=== PATIENT | female | born 1970 | race African-American/Black ===

== ENCOUNTER → 2020-01-06 08:52 | Outpatient (CLI) | payer BC, SELFPAY ==
--- NOTE | ~2020-01-06 | CT_ITS ---
EXAMINATION: CT abdomen pelvis wo/w con EXAM DATE: 01/06/2020 09:37 INDICATION: Microscopic hematuria. Recent bladder infection. Partial hysterectomy. Hypertension. TECHNIQUE: Spiral CT of the abdomen and pelvis was performed without contrast. The patient was then injected with small bolus intravenous Omnipaque 350, followed by delay of approximately 10 minutes to allow collecting system to opacify. A post contrast scan abdomen and pelvis was performed during inj ection of remaining contrast. A total of 130 cc intravenous contrast was administered. The dose-sisi th product (DLP) for this examination was 959.91 mGy-cm. The exposure was tailored according to rick ent size (auto mA exposure control), and iterative reconstruction (ASIR) was used as additional dose reduction technique. There is no prior study for comparison. FINDINGS: There are 3 left mid calyceal stones, up to 5 mm in size. There are 4 right calyceal stones up to 3 mm in size. There is a right renal cyst measuring 1 cm. The kidneys enhance symmetrically. There are no suspicious renal lesions. Filling defect in the left inferior most calyx could be a pr ominent papillary. The opacified portions of ureters are unremarkable, without filling defects or foc al suspicious strictures. The bladder is unremarkable. The uterus is not identified and has likely been surgically resected. The liver, spleen, adrenal glands and pancreas are unremarkable. Gallbladder is unremarkable. No bi liary obstruction. There is no retroperitoneal or pelvic lymphadenopathy. The appendix is not positively visualized. There is no pericecal inflammatory change to suggest appe ndicitis. The stomach and small bowel are unremarkable. There is expected amount of colonic stool. No free intraperitoneal gas. The heart is normal in size. There are no pericardial or pleural e ffusions. The lung bases are unremarkable. There are no osteoblastic or osteolytic lesions identifi ed. IMPRESSION: 1. Bilateral nephrolithiasis. 2. Left inferior calyceal filling defect most likely more prominent papilla. Reviewed, dictated and finalized at location B. ER SKIDDER
[2020-01-06 09:14] LABS: Blood Urea Nitrogen 20 mg/dL (8-26); Estimated Glomerular Filt Rate > 60
== END ==
PROVIDERS: PCP Internal Medicine; Visit Provider Internal Medicine Interventional Cardiology
DX: R31.21 Asymptomatic microscopic hematuria (principal); N20.0 Calculus of kidney
CPT/HCPCS: 74178; Q9967

== ENCOUNTER → 2020-10-31 12:47 | Outpatient (CLI) | payer BC, SELFPAY ==
--- NOTE | ~2020-10-31 | CT_ITS ---
EXAMINATION: CT abdomen pelvis wo/w con DATE: 10/31/2020 13:49 INDICATION: Hematuria TECHNIQUE: Computed tomography (CT) of the abdomen and pelvis was performed without and subsequently with 130 cc Omnipaque 350 intravenous contrast. Automated exposure control and iterative reconstructi on technique were employed. Exam dose: 1065.69 mGy-cm total exam DLP. COMPARISON: 01/06/2020 CT abdomen pelvis without and with IV contrast material FINDINGS: The lung bases are clear. Normal heart size. No pericardial or pleural effusion. The liver, gallbladder, bile ducts, spleen, pancreas, pancreatic duct and adrenal glands appear abhishek l. There are 4 small nonobstructing right renal calculi, the largest measuring approximately 4 mm james l dimension. There are 3 left renal calculi, the largest approximately 6 mm, one measuring approximately 4.5 mm, a nd a very subtle punctate lower pole left renal calculus. No ureteral calculus or hydroureteronephrosis. There is a 1 cm hypoenhancing exophytic lesion at the lower pole left kidney, likely a cyst. 10.5 mm lower pole right renal cyst. A couple of additional small right renal cysts are suggested. The urinary bladder is unremarkable. Normal caliber of the abdominal aorta. No intraperitoneal or retroperitoneal or pelvic mass lesion or adenopathy or ascites is detected. Normal appendix. There is diverticulosis of the sigmoid colon; no evidence of diverticulitis. No bowel obstruction or intraperitoneal free air. Included skeletal structures are unremarkable; no suspicious osteolytic or osteoblastic lesions are n oted. IMPRESSION: Bilateral nonobstructive nephrolithiasis Bilateral probable renal cysts Diverticulosis of the sigmoid colon Reviewed, dictated and finalized at Location A. Reviewed, dictated and finalized at location A. STAFFING
[2020-10-31 13:24] LABS: Estimated Glomerular Filt Rate > 60
== END ==
PROVIDERS: PCP Internal Medicine; Visit Provider Urology
DX: R31.9 Hematuria, unspecified (principal); K57.30 Diverticulosis of large intestine without perforation or abscess without bleeding; N20.0 Calculus of kidney
CPT/HCPCS: 74178; Q9967

== ENCOUNTER → 2020-10-31 12:49 | Outpatient (CLI) | payer BC, SELFPAY ==
--- NOTE | ~2020-10-31 | XR_ITS ---
XR ankle RT min 3V DATE: 10/31/2020 13:22 INDICATION: Right ankle pain. No known injury. TECHNIQUE: 3 views COMPARISON: None FINDINGS: There is posterior calcaneal enthesopathy. No fracture or dislocation of the ankle or disruption of the ankle mortise. No periosteal reaction or bone destruction. IMPRESSION: Posterior calcaneal enthesopathy Reviewed, dictated and finalized at location A. PHONE WORKER
--- NOTE | ~2020-10-31 | XR_ITS ---
EXAMINATION: XR lumbar spine min 4V DATE: 10/31/2020 13:23 INDICATION: Lumbar radiculopathy TECHNIQUE: Anteroposterior and lateral in neutral, flexion and extension views of the lumbar spine, a nd cone-down lateral view of the lumbosacral junction were obtained. COMPARISON: 05/09/2019 FINDINGS: The vertebral body heights, alignment, and intervertebral disc spaces are normal. No laxity is present with flexion or extension. Small degenerative osteophytes project from the anterior endpl ates of multiple vertebral bodies. Punctate calcification of the mid abdomen are consistent with neph rolithiasis. IMPRESSION: 1. Mild lumbar spondylosis without acute findings. 2. Bilateral nephrolithiasis. Reviewed, dictated and finalized at location A. YOLOGY TEACHER
== END ==
PROVIDERS: PCP Internal Medicine; Visit Provider Internal Medicine
DX: M47.26 Other spondylosis with radiculopathy, lumbar region (principal); N20.0 Calculus of kidney; M77.31 Calcaneal spur, right foot
CPT/HCPCS: 72110; 73610

== ENCOUNTER → 2020-11-11 13:49 | Outpatient (CLI) | payer BC, SELFPAY ==
--- NOTE | ~2020-11-11 | MM_ITS ---
EXAMINATION: MM screening [facility] BI w nanci HISTORY: Screening mammogram TECHNIQUE: Craniocaudal and mediolateral oblique 3-D tomosynthesis images were obtained and synthetic 2-D images were generated. CAD analysis was submitted and interpreted. COMPARISON: 09/29/2019, 02/01/2015 BREAST PARENCHYMAL COMPOSITION: The breasts are heterogeneously dense, which may obscure small masses . FINDINGS: There is no evidence of suspicious mass, calcification, or architectural distortion to sugg est malignancy in either breast. There has been no suspicious interval change. IMPRESSION: 1. No mammographic evidence of malignancy. 2. Recommend routine screening mammography in one year. BI-RADS Category 1: Negative Reviewed, dictated and finalized at location A. OR SKIN BUFFER
== END ==
PROVIDERS: PCP Internal Medicine; Visit Provider Internal Medicine
DX: Z12.31 Encounter for screening mammogram for malignant neoplasm of breast (principal)
CPT/HCPCS: 77063; 77067

== ENCOUNTER 2021-07-09 04:11 | Day surgery (SDC) | payer BC, SELFPAY ==
[2021-07-09] VITALS (17 sets, daily range): BP systolic 111–161; BP diastolic 82–103; PULSE 70–87; RESP 13–20; TEMP 36.3–36.6; O2SAT 98–100
--- NOTE | ~2021-07-09 | CT_ITS ---
EXAMINATION: CT abdomen pelvis wo con DATE: 07/09/2021 05:03 INDICATION: Left flank pain TECHNIQUE: Computed tomography (CT) of the abdomen and pelvis was performed without intravenous contr ast. The dose-length product (DLP) was 174.10 mGy-cm. Automated exposure control and iterative recons truction technique were employed. COMPARISON: 10/31/2020 FINDINGS: Minimal dependent atelectasis is present in the lung bases. The heart size is normal. The l iver, spleen, pancreas, gallbladder, and adrenal glands are normal. There is a 9 mm stone at the left ureterovesicular junction which causes moderate left hydroureteronephrosis. There is a 4 mm nonobstr ucting stone of the left kidney. There are three nonobstructing stones of the right kidney which ish ure up to 4 mm. There is a 10 mm cyst of the right kidney. No pathologically enlarged abdominal or pe lvic lymph nodes are identified. There is no free intraperitoneal gas or evidence of bowel obstructio n. A fat-containing umbilical hernia is noted. There is mild lumbar spondylosis. IMPRESSION: 1. 9 mm stone at the left ureterovesicular junction causing moderate left hydroureteronephrosis. 2. Bilateral nonobstructing nephrolithiasis. Reviewed, dictated and finalized at location A. IMPRESSION: 1. 9 mm stone at the left ureterovesicular junction causing moderate left hydro ureteronephrosis. 2. Bilateral nonobstructing nephrolithiasis.
--- NOTE | ~2021-07-09 | XR_ITS ---
EXAMINATION: XR retrograde pyelogram LT DATE: 07/09/2021 12:50 INDICATION: Left sided flank pain for ureteral stent placement TECHNIQUE: A fluoroscopic images of the abdomen and pelvis were obtained during procedure performed deepti Patten. Radiologist was not present for the imaging or procedure. The amount of fluoroscopy t fan used during this procedure was 0.5 minutes. COMPARISON: CT dated 07/09/2021 FINDINGS: Density projecting over the left pubic body on the inspector assembly image likely representing the previously see n obstructing stone at the left ureterovesicular junction. Subsequent images demonstrate retrograde c ontrast injection into the left ureter demonstrating mild left hydronephrosis. Subsequent images demo nstrate placement of a left internal ureteral stent with loops formed in the left renal pelvis and in the bladder. The stone at the left ureterovesicular junction is no longer seen on the final images p ost stent placement and has likely been extracted. See procedure note for further detail. IMPRESSION: 1. Has been utilized during likely extraction of a stone at the left ureterovesicular junction and pl acement of a left internal ureteral stent in expected position. Reviewed, dictated and finalized at location A. IMPRESSION: 1. Has been utilized during likely extraction of a stone at the left ureteroves icular junction and placement of a left internal ureteral stent in expected pos ition.
--- NOTE | 2021-07-09 04:41 | ED.GENADULT ---
HPI - General Adult General Chief complaint: Abdominal Pain <Faustino Olivo MD - Last Filed: 07/09/21 07:16> Stated complaint: Left flank pain, n/v <Faustino Olivo MD - Last Filed: 07/09/21 07:16> Time Seen by Provider: 07/09/21 04:26 <Faustino Olivo MD - Last Filed: 07/09/21 07:16> History of Present Illness HPI narrative: Patient is a 51-year-old female presents the emergency department with chief complaint of left flank pain. Patient reports that this evening around 9 PM she started having pain in the left flank that radiates to left lower quadrant patient reports she has an uneasy feeling and feels very nauseated and has vomited multiple times. Patient has prior history of blood in her urine and was told that she had several stones that had not descended. Patient reports that she had no fever no chills reports no diarrhea with this. Patient reports the pain is not improved by anything nor is it worsened by anything patient states that movement does not modify the pain and reports that she cannot sit still. <Faustino Olivo MD - Last Filed: 07/09/21 07:16> Related Data Allergies/adverse reactions: Allergies Allergy/AdvReac Type Severity Reaction Status Date / Time No Known Allergies Allergy Unverified 11/28/17 14:31 <Faustino Olivo MD - Last Filed: 07/09/21 07:16> Review of Systems Review of Systems: A 10 system review of systems was completed on the patient and is negative except for what is stated in the HPI. Nursing and ancillary documentation was reviewed. <Faustino Olivo MD - Last Filed: 07/09/21 07:16> Exam Narrative: GENERAL: Well-appearing, well-nourished, appears in mild pain distress. HEAD: Normocephalic, atraumatic. EYES: PERRLA and EOMI. ENT: Nares clear, no rhinorrhea or epistaxis. Mucous membranes moist. NECK: Supple. CHEST: Clear to auscultation. No respiratory distress. HEART: Regular rate and rhythm. No murmur heard. Normal peripheral pulses. ABDOMEN: Soft, nontender, nondistended, normal active bowel sounds. EXTREMITIES: Normal range of motion. No edema. SKIN: Warm, dry, no rash. NEURO: No focal deficits. Alert and oriented x3. PSYCH: Normal mood and affect. <Faustino Olivo MD - Last Filed: 07/09/21 07:16> Course Consultations Consultation #1: Dr. Patten Patient will be taken to the OR at 11 AM today <Mariangel Wong MD - Last Filed: 07/09/21 09:19> Date: 07/09/21 <Mariangel Wong MD - Last Filed: 07/09/21 09:19> Time: 09:18 <Mariangel Wong MD - Last Filed: 07/09/21 09:19> Vital Signs Vital signs: Vital Signs Temperature 36.6 C 07/09/21 04:21 Pulse Rate 81 07/09/21 04:21 Respiratory Rate 20 07/09/21 04:21 Blood Pressure 146/101 H 07/09/21 04:21 Pulse Oximetry 100 07/09/21 04:21 Temperature 36.6 C 07/09/21 04:21 Pulse Rate 87 07/09/21 08:21 Respiratory Rate 20 07/09/21 08:21 Blood Pressure 161/102 H 07/09/21 06:57 Pulse Oximetry 100 07/09/21 08:21 <Faustino Olivo MD - Last Filed: 07/09/21 07:16> Vital Signs Temperature 36.6 C 07/09/21 04:21 Pulse Rate 81 07/09/21 04:21 Respiratory Rate 20 07/09/21 04:21 Blood Pressure 146/101 H 07/09/21 04:21 Pulse Oximetry 100 07/09/21 04:21 Temperature 36.6 C 07/09/21 04:21 Pulse Rate 87 07/09/21 08:21 Respiratory Rate 20 07/09/21 08:21 Blood Pressure 161/102 H 07/09/21 06:57 Pulse Oximetry 100 07/09/21 08:21 <Mariangel Wong MD - Last Filed: 07/09/21 09:19> Medical Decision Making Vital Signs Vital Signs: Vital Signs Temperature 36.6 C 07/09/21 04:21 Pulse Rate 81 07/09/21 04:21 Respiratory Rate 20 08/15/21 04:21 Blood Pressure 146/101 H 07/09/21 04:21 Pulse Oximetry 100 07/09/21 04:21 Temperature 36.6 C 07/09/21 04:21 Pulse Rate 87 07/09/21 08:21 Respiratory Rate 20 07/09/21 08:21 Blo
[2021-07-09] MEDS: SODIUM CHLORIDE 0.9% IV 1,000 ML 999 ML IV CONT (04:48)
[2021-07-09] MEDS: ONDANSETRON INJ 4 MG/2 ML VIAL IV PUSH (04:48)
[2021-07-09] MEDS: MORPHINE SULFATE (*CRX) 4 MG/ML INJ IV PUSH (04:48)
--- NOTE | 2021-07-09 04:55 | PC.NURSE ---
pt to CT at this time.
[2021-07-09 04:58] LABS: Basophils Percent Auto 0.4 % (0.2-1.2); Eosinophils Percent Auto 0.1 % (0-4.4); Hemoglobin 12.3 g/dL (12.0-15.0); Immature Granulocyte Absolute 0.03 K/mm3 (0.00-0.031); Immature Granulocyte Percent A 0.3 % (0-0.5); Lymphocytes Absolute Auto 0.65 K/mm3 (0.9-3.2); Lymphocytes Percent Auto 6.6 % (18.3-44.2); Mean Corpuscular HGB Conc 33.2 g/dl (32-36); Mean Corpuscular Hemoglobin 28.4 pg (26-34); Mean Corpuscular Volume 85.5 fl (80-100); Mean Platelet Volume 10.1 fl (7.4-10.4); Monocytes Absolute Auto 0.4 K/mm3 (0.1-0.6); Monocytes Percent Auto 4.1 % (2.6-8.5); Neutrophils Absolute Auto 8.7 K/mm3 (1.3-6.7); Neutrophils Percent Auto 88.5 % (45.5-73.1); Platelet Count Result 280 k/mm3 (150-375); Red Blood Count 4.33 M/mm3 (4.2-5.4); Red Cell Distribution Width 12.5 % (11.5-14.5); White Blood Count 9.9 K/mm3 (4.5-10.0)
[2021-07-09 05:10] LABS: Alanine Aminotransferase 15 U/L (4-35); Albumin Level 4.6 g/dL (3.5-5.1); Alkaline Phosphatase 82 U/L (38-126); Aspartate Amino Transferase 33 U/L (14-36); Bilirubin,Total 0.6 mg/dL (0.2-1.3); Lipase 110 U/L (23-300)
--- NOTE | 2021-07-09 05:13 | PC.NURSE ---
pt ambulated to bathroom at this time to give urine sample.
[2021-07-09 05:40] LABS: Add Urine Microscopic? YES; Amorphous Sediment Urine Few; Appearance Urine Cloudy (Clear); Bilirubin Urine Negative (Negative); Blood Urine 2+ (Negative); Color Urine Yellow (Yellow); Glucose Urine UA 1+ mg/dL (Negative); Ketones Urine Trace mg/dL (Negative); Leukocyte Esterase Ur Negative LEU/UL (Negative); Mucus Urine Rare /lpf; Nitrate Urine Negative (Negative); Protein Urine Negative (Negative); RBC Urine >75 /hpf (0-2); Specific Grav Ur 1.015 (1.001-1.035); Squamous Epithelial Cell Urine Rare /hpf (Few); Urobilinogen Urine Negative mg/dL (<2.0); WBC Urine 0-3 /hpf
[2021-07-09 06:37] LABS: Anion Gap 7 mmol/L (8-16); Blood Urea Nitrogen 20 mg/dL (7-17); Calcium 9.6 mg/dL (8.4-10.2); Carbon Dioxide 22 mmol/L (22-30); Chloride 104 mmol/L (98-107); Estimated Glomerular Filt Rate 48; Glucose 178 mg/dL (65-110); Potassium 3.5 mmol/L (3.4-5.0); Sodium 133 mmol/L (137-145)
--- NOTE | 2021-07-09 11:37 | WPDHPUPDATE1 ---
History and Physical Update Update Date/Time: 07/09/21 11:37 History and Physical has been reviewed, including an updated exam of the patient. There are NO changes in the patient's condition. Risks, benefits, and alternatives have been discussed and questions answered. Patient agrees to proceed with procedure. Proceed with cysto left retrograde pyelogram left stent placement possible left ureteroscopy with stone extraction and laser
--- NOTE | 2021-07-09 11:38 | PM.IMHP ---
H&P: HPI History of Present Illness Date/Time: 07/09/21 11:38 Chief Complaint: 7-8 mm left distal UVJ stone with hydronephrosis Narrative: 51-year-old female who presented to the emergency room with left flank pain. Denied any fevers. Evaluation emergency room revealed a 7 day mm obstructing distal left UVJ stone with hydronephrosis. Emergency room was having a tough time controlling her pain. She now presents for cysto left retrograde pyelogram left stent possible ureteroscopy with stone extraction and laser Review of Systems Review of Systems: All systems reviewed & are unremarkable except as noted in HPI and below Meds Home Medications and Allergies Allergies Allergy/AdvReac Type Severity Reaction Status Date / Time No Known Allergies Allergy Unverified 11/28/17 14:31 Vital Signs Vital Signs - 24 hr 07/09/21 04:21 07/09/21 05:14 07/09/21 05:50 Temperature 36.6 C Pulse Rate 81 77 78 Respiratory Rate 20 18 18 Blood Pressure 146/101 H 153/100 H 146/99 H Pulse Oximetry 100 99 98 07/09/21 06:06 07/09/21 06:57 07/09/21 08:21 Temperature Pulse Rate 70 74 87 Respiratory Rate 18 18 20 Blood Pressure 138/95 H 161/102 H Pulse Oximetry 100 100 100 07/09/21 08:52 07/09/21 09:01 07/09/21 09:15 Temperature Pulse Rate 83 81 83 Respiratory Rate 20 20 20 Blood Pressure 149/103 H 158/98 H 158/98 H Pulse Oximetry 100 100 100 07/09/21 10:13 07/09/21 10:52 Temperature Pulse Rate 78 75 Respiratory Rate 20 20 Blood Pressure 160/102 H 160/102 H Pulse Oximetry 100 100 Exam Const: General: No comfortable Eyes: General: appearance normal, both eyes and all related structures Neck: Neck: normal visual inspection Chest: Chest palpation & inspection: normal inspection of the chest Resp: Effort & Inspection: normal respiratory effort Cardio: Rate: regular rate Rhythm: regular rhythm GI: Inspection: normal to inspection H&P: Results Labs Labs: Short CBC 07/09/21 Range/Units 04:43 WBC 9.9 (4.5-10.0) K/mm3 Hgb 12.3 (12.0-15.0) g/dL Hct 37.0 (37.0-47.0) % Plt Count 280 (150-375) k/mm3 BMP 07/09/21 04:43 Sodium 133 L Potassium 3.5 Chloride 104 Carbon Dioxide 22 BUN 20 H Creatinine 1.40 H Glucose 178 H Calcium 9.6 Liver Function 07/09/21 Range/Units 04:43 Total Bilirubin 0.6 (0.2-1.3) mg/dL Direct Bilirubin 0.0 (0-0.3) mg/dL AST 33 (14-36) U/L ALT 15 (4-35) U/L Alkaline Phosphatase 82 (38-126) U/L Albumin 4.6 (3.5-5.1) g/dL Urine 07/09/21 Range/Units 05:19 Urine Color Yellow (Yellow) Urine Appearance Cloudy H (Clear) Urine pH 8.0 (5.0-9.0) Ur Specific Jessie 1.015 (1.001-1.035) Urine Protein Negative (Negative) mg/dL Urine Glucose (UA) 1+ H (Negative) mg/dL Assessment and Plan Assessment and plan (1) Ureterolithiasis: Code(s): N20.1 - Calculus of ureter Status: Acute Assessment and Plan: plan for cystoscopy, left retrograde pyelogram, left stent placement, possible ureteroscopy with stone extraction and laser
--- NOTE | 2021-07-09 11:43 | WPDANESEPPF ---
Anes - Initial Pre Proc Eval Procedure: Operation Date: 07/09/21 12:00 Proposed Procedures p Cysto, RPG, Stone Ext, Stent Placement(Left) - Joseph Patten MD Date/Time: 07/09/21 11:43 Surgeon: Joseph Patten MD Pre Op Diagnosis: Left flank pain, n/v Patient Data Age: 51 Gender: F Height: Weight: Last Vital Signs Temp 36.6 C 07/09/21 04:21 Pulse 75 07/09/21 10:52 Resp 20 07/09/21 10:52 BP 160/102 H 07/09/21 10:52 Pulse Ox 100 07/09/21 10:52 Allergies Allergy/AdvReac Type Severity Reaction Status Date / Time No Known Allergies Allergy Unverified 11/28/17 14:31 Laboratory Tests 07/09/21 07/09/21 07/09/21 04:43 04:43 04:43 WBC 9.9 K/mm3 K/mm3 (4.5-10.0) RBC 4.33 M/mm3 M/mm3 (4.2-5.4) Hgb 12.3 g/dL g/dL (12.0-15.0) Hct 37.0 % % (37.0-47.0) MCV 85.5 fl fl (80-100) MCH 28.4 pg pg (26-34) MCHC 33.2 g/dl g/dl (32-36) RDW 12.5 % % (11.5-14.5) Plt Count 280 k/mm3 k/mm3 (150-375) MPV 10.1 fl fl (7.4-10.4) Immature Gran % (Auto) 0.3 % % (0-0.5) Neut % (Auto) 88.5 % H % (45.5-73.1) Lymph % (Auto) 6.6 % L % (18.3-44.2) [place] % (Auto) 4.1 % % (2.6-8.5) Eos % (Auto) 0.1 % % (0-4.4) Baso % (Auto) 0.4 % % (0.2-1.2) Lymph # (Auto) 0.65 K/mm3 L K/mm3 (0.9-3.2) [place] # (Auto) 0.4 K/mm3 K/mm3 (0.1-0.6) Eos # (Auto) 0.0 K/mm3 K/mm3 (0-0.3) Baso # (Auto) 0.0 K/mm3 K/mm3 (0.0-0.1) Abs Immat Gran (auto) 0.03 K/mm3 K/mm3 (0.00-0.031) Absolute Neuts (auto) 8.7 K/mm3 H K/mm3 (1.3-6.7) Absolute Nucleated RBC 0.0 K/mm3 K/mm3 (0.0-0.012) Nucleated RBC % 0.0 % % (0.0-0.2) Sodium 133 mmol/L L mmol/L (137-145) Potassium 3.5 mmol/L mmol/L (3.4-5.0) Chloride 104 mmol/L mmol/L (98-107) Carbon Dioxide 22 mmol/L mmol/L (22-30) Anion Gap 7 mmol/L L mmol/L (8-16) BUN 20 mg/dL H mg/dL (7-17) Creatinine 1.40 mg/dL H mg/dL (0.7-1.0) Estim Creat Clear Calc Not Reportable Estimated GFR 48 L (59 - ) Glucose 178 mg/dL H mg/dL (65-110) Calcium 9.6 mg/dL mg/dL (8.4-10.2) Total Bilirubin 0.6 mg/dL mg/dL (0.2-1.3) Direct Bilirubin 0.0 mg/dL mg/dL (0-0.3) AST 33 U/L U/L (14-36) ALT 15 U/L U/L (4-35) Alkaline Phosphatase 82 U/L U/L (38-126) Total Protein 8.0 g/dL g/dL (6.3-8.2) Albumin 4.6 g/dL g/dL (3.5-5.1) Lipase 110 U/L U/L (23-300) Urine Color Urine Appearance Urine pH Ur Specific [place] Urine Protein Urine Glucose (UA) Urine Ketones Ur Blood (Man) Urine Nitrate Urine Bilirubin Urine Urobilinogen Leukocyte Esterase Rfl Urine RBC Urine WBC Ur Squamous Epith Cells Amorphous Sediment Urine Mucus 07/09/21 05:19 WBC RBC Hgb Hct MCV MCH MCHC RDW Plt Count MPV Immature Gran % (Auto) Neut % (Auto) Lymph % (Auto) [place] % (Auto) Eos % (Auto) Baso % (Auto) Lymph # (Auto) [place] # (Auto) Eos # (Auto) Baso # (Auto) Abs Immat Gran (auto) Absolute Neuts (auto) Absolute Nucleated RBC Nucleated RBC % Sodium Potassium Chloride Carbon Dioxide Anion Gap BUN Creatinine Estim Creat Clear Calc Estimated GFR Glucose Calcium Total Bilirubin Direct Bilirubin AST ALT Alkaline
[2021-07-09] MEDS: LACTATED RINGERS 1,000 ML 30 ML IV CONT (12:05)
[2021-07-09] MEDS: ceFAZolin SODIUM 1 GM VIAL 2 GM IV PUSH (12:23)
[2021-07-09] MEDS: LIDOCAINE HCL 2% GEL UROJET 10 ML PKG MUCOUS MEM (12:46)
--- NOTE | 2021-07-09 12:50 | P.OP_ITS ---
Procedure Note - Detailed Date of Procedure 07/09/21 Pre-op Diagnosis Left flank pain, n/v 9 mm left UVJ calculus Post-op Diagnosis same Procedure Performed Cystoscopy, left retrograde pyelogram, left ureteroscopy with holmium laser, stone extraction, left stent placement 4.8 Burkinan contour Surgeon Joseph Patten MD Anesthesia general Description of Procedure Patient is taken to the operative suite correctly identified. Once anesthesia was obtained she was placed in dorsal lithotomy position and prepped and draped usual sterile fashion. Twenty-two Burkinan scope was inserted the bladder. There were no tumors noted. Left ureteral orifice was cannulated with a guidewire. We dilated with an 8/10 dilator. A rigid ureteral scope was then inserted. Escape basket was passed around the stone. It was too large to retrieve 1 piece. Using a holmium laser we fragmented the stone multiple pieces. The largest stone was retrieved and sent for analysis. Pyelogram was then performed to confirm placement the stent. It almost appears as if though she has a bifid collecting system. The stent was placed in the upper pole system. Distal end was coiled in the bladder. 2% viscous lidocaine was inserted urethra patient is taken recovery stable condition. She will follow up in a week's time for stent removal. Drains Yes Packing No Pathology yes Complications No immediate complications Condition stable Disposition PACU
== END 2021-07-09 14:30 | disposition home or self-care (01) ==
LOC: ANHED 09:19 → ANHSURGERY 09:21
PROVIDERS: Emergency Medicine; Emergency Provider Emergency Medicine; PCP Internal Medicine; Visit Provider Urology
PROC: (CPT 52352; principal; 2021-07-09 12:00)
PROC: (CPT 52356; 2021-07-09 12:00)
DX: N13.2 Hydronephrosis with renal and ureteral calculous obstruction (principal); R10.9 Unspecified abdominal pain; R11.2 Nausea with vomiting, unspecified; G47.33 Obstructive sleep apnea (adult) (pediatric)
CPT/HCPCS: 52356; 36415; 74176; 74420; 80048; 80076; 81001; 81025; 82365; 83690; 85025; 88300; 96361; 96374; 96375; 99285; C1769; C2617; J0690; J1100; J2250; J2270; J2405; J2704; J3010; J7030; J7120; Q9966

== ENCOUNTER 2021-10-09 00:32 | Day surgery (SDC) | payer BC, SELFPAY ==
[2021-09-26 14:15] VITALS: BMI 27.3
--- NOTE | 2021-10-09 08:45 | WPDANESEPPF ---
Anes - Initial Pre Proc Eval Procedure: Operation Date: 10/09/21 11:00 Proposed Procedures p Screening Colonoscopy - Abdulkadir Can MD Date/Time: 10/09/21 08:45 Surgeon: Abdulkadir Can MD Pre Op Diagnosis: neoplasm screening Patient Data Age: 51 Gender: F Height: 1.57 m Weight: 68 kg Allergies Allergy/AdvReac Type Severity Reaction Status Date / Time prochlorperazine Allergy Loss of Verified 10/09/21 10:01 [From Compazine] Consciousness Home Medications Medication Instructions Recorded Confirmed Type amlodipine 5 mg PO DAILY 09/26/21 09/26/21 History omeprazole 20 mg PO DAILY PRN 09/26/21 09/26/21 History Patient hx anesthesia problems: none Family hx anesthesia problems: none Results Review: All pre-operative results and documents have been reviewed as part of the pre-operative evaluation. [facility] Past Medical History Medical History (Updated 10/09/21 @ 08:46 by Zoltan Klein MD) Chronic GERD HTN (hypertension) Migraine PIERRE (obstructive sleep apnea) Social History Social History Smoking status: Never smoker Substance use: never Living arrangements: with family Spiritual care concerns: No Anes - Eval Final PreProcedure Day of Procedure 10/09/21 08:45 Patient weight: overweight Heart: regular rate and rhythm Lungs: clear to auscultation and normal air movement Airway: Mallampati scale class II Neurological: alert and oriented Last oral intake: >/= 8 hours ASA classification: II Emergent: no Anesthetic plan: proceed Anesthesia type and monitoring: general GIVS Results Review: All pre-operative results and documents have been reviewed as part of the pre-operative evaluation. Informed Consent: The patient's anesthetic plan and its attendant risks and benefits were discussed with the patient/family/POA. Questions were solicited and answers provided to the satisfaction of the patient/family/POA.
[2021-10-09 10:04] VITALS: BP 145/92; PULSE 99; RESP 20; TEMP 36.5; O2SAT 98; BMI 25.0
[2021-10-09] MEDS: LACTATED RINGERS 1,000 ML 150 ML IV CONT (10:09)
--- NOTE | 2021-10-09 10:20 | WPDGICN ---
Assessment and Plan Assessment and plan (1) Encounter for screening colonoscopy: Code(s): Z12.11 - Encounter for screening for malignant neoplasm of colon Status: Acute Assessment and Plan: Patient presents for screening colonoscopy. She appears to be at average risk for colon polyps. GI Consult Note Consult date/time: 10/09/21 10:20 HPI: Rebecca Shin is a 51 year old female Presents for screening colonoscopy. Patient reports that her current weight appetite bowel movements are normal. She denies abdominal pain. She has had no bleeding. Family history is noncontributory. Review of Systems Review of Systems: All systems reviewed & are unremarkable except as noted in HPI and below PMFSH Past Medical History Medical History (Updated 10/09/21 @ 10:21 by Abdulkadir Can MD) Chronic GERD HTN (hypertension) Migraine PIERRE (obstructive sleep apnea) Social History Social History Smoking status: Never smoker Substance use: never Living arrangements: with family Spiritual care concerns: No Meds Home Medications and Allergies Home Medications Medication Instructions Recorded Confirmed Type amlodipine 5 mg PO DAILY 09/26/21 09/26/21 History omeprazole 20 mg PO DAILY PRN 09/26/21 09/26/21 History Allergies Allergy/AdvReac Type Severity Reaction Status Date / Time prochlorperazine Allergy Loss of Verified 10/09/21 10:01 [From Compazine] Consciousness Vital Signs Vital Signs - 24 hr 10/09/21 10:04 Temperature 97.7 F Pulse Rate 99 Respiratory Rate 20 Blood Pressure 145/92 H Pulse Oximetry 98 Exam Narrative: Physical exam reveals patient be alert. Vital signs stable. HEENT exam is unremarkable. Patient is anicteric. Lungs are clear to auscultation and percussion. Heart is without murmur or extra sounds. Abdomen bowel sounds are present soft nontender with no organomegaly. Digital external rectal exam is normal.
[2021-10-09 10:45] VITALS: BP 119/83; PULSE 91; RESP 20; O2SAT 100
[2021-10-09 10:55] VITALS: BP 127/87; PULSE 75; RESP 20; O2SAT 100
[2021-10-09 11:05] VITALS: BP 132/97; PULSE 74; RESP 20; O2SAT 100
--- NOTE | 2021-10-09 11:05 | SUR.PHASEII ---
Pt states left eye feeling dry and blurry. Saline drops placed in eye with some relief. No redness, swelling, or tearing. Will continue to monitor.
--- NOTE | 2021-10-09 11:32 | SUR.PHASEII ---
Pt continues to c/o eye feeling blurry and strained. Abx drops ordered per Anesthesia. Pt refused drops. Will continue to monitor at home.
== END 2021-10-09 11:36 | disposition home or self-care (01) ==
PROVIDERS: PCP Internal Medicine; Visit Provider Internal Medicine Gastroenterology
PROC: 0DJD8ZZ Inspection of Lower Intestinal Tract, Via Natural or Artificial Opening Endoscopic (ICD-10-PCS; CPT 45378; principal; 2021-10-09 11:00)
DX: Z12.11 Encounter for screening for malignant neoplasm of colon (principal); K57.30 Diverticulosis of large intestine without perforation or abscess without bleeding; I10 Essential (primary) hypertension; K21.9 Gastro-esophageal reflux disease without esophagitis; G47.33 Obstructive sleep apnea (adult) (pediatric)
CPT/HCPCS: 45378; A9270; J2704; J7120

== ENCOUNTER → 2021-10-14 09:48 | Outpatient (CLI) | payer BC, SELFPAY ==
--- NOTE | ~2021-10-14 | XR_ITS ---
EXAMINATION: XR abdomen/kub 1V EXAM DATE: 10/14/2021 11:50 INDICATION: Bilateral nephrolithiasis . TECHNIQUE: Frontal projection(s) of the abdomen for interpretation. Correlation is made to CT abdomen pelvis from 07/09/2021. FINDINGS: There are several small densities identified over the renal contours, possible small nephro lithiasis. These have been indicated. Pelvic calcifications are probably phleboliths. Bowel gas is ov erlying most of the abdomen and pelvis. Nonobstructive bowel gas pattern. Lung bases unremarkable. Th ere is no organomegaly. IMPRESSION: Probable identification small bilateral nephrolithiasis. Reviewed, dictated and finalized at location A. TRE PROFESSOR
== END ==
PROVIDERS: Visit Provider Nurse Practitioner Adult Health
DX: N20.0 Calculus of kidney (principal)
CPT/HCPCS: 74018

== ENCOUNTER → 2022-05-03 07:53 | Outpatient (CLI) | payer BC, SELFPAY ==
--- NOTE | ~2022-05-03 | US_ITS ---
US right upper quadrant INDICATION: Gastroesophageal reflux. Heartburn. PROCEDURE: Realtime right upper abdominal ultrasound. COMPARISON: No prior studies for comparison. FINDINGS: The pancreas is normal without focal mass or pancreatic ductal dilation. Liver echotexture is normal without focal mass or intrahepatic biliary dilatation. There is normal directional flow i n the portal vein. The gallbladder is normal without stones, gallbladder wall thickening or pericholecystic fluid. Comm on bile duct measures 3 mm. No sonographic Valadez's sign. Right renal echotexture is unremarkable. IMPRESSION: 1: Normal limited abdominal ultrasound. Reviewed, dictated and finalized at location B.
== END ==
PROVIDERS: PCP Internal Medicine; Visit Provider Internal Medicine
DX: K21.9 Gastro-esophageal reflux disease without esophagitis (principal)
CPT/HCPCS: 76705

== ENCOUNTER → 2022-09-17 16:41 | Outpatient (CLI) | payer BC, SELFPAY ==
--- NOTE | ~2022-09-17 | MM_ITS ---
EXAMINATION: MM screening [facility] BI w nanci HISTORY: Screening mammogram TECHNIQUE: Craniocaudal and mediolateral oblique 3-D tomosynthesis images were obtained and synthetic 2-D images were generated. CAD analysis was submitted and interpreted. COMPARISON: 11/11/2020, 09/29/2019, 02/01/2015 BREAST PARENCHYMAL COMPOSITION: The breasts are heterogeneously dense, which may obscure small masses . FINDINGS: No suspicious mass, calcification, or architectural distortion are identified in either danuta ast to suggest malignancy. There has been no suspicious interval change. IMPRESSION: 1. No mammographic evidence of malignancy. 2. Recommend routine screening mammography in one year. BI-RADS Category 1: Negative Reviewed, dictated and finalized at location A.
== END ==
PROVIDERS: PCP Internal Medicine; Visit Provider Internal Medicine
DX: Z12.31 Encounter for screening mammogram for malignant neoplasm of breast (principal)
CPT/HCPCS: 77063; 77067

== ENCOUNTER → 2022-12-22 09:16 | Outpatient (CLI) | payer BC, SELFPAY ==
--- NOTE | ~2022-12-22 | US_ITS ---
US right upper quadrant INDICATION: Gastroesophageal reflux disease PROCEDURE: Realtime right upper abdominal ultrasound. COMPARISON: No prior studies for comparison. FINDINGS: The pancreas is normal without focal mass or pancreatic ductal dilation. Liver echotexture is normal without focal mass or intrahepatic biliary dilatation. There is normal directional flow i n the portal vein. The gallbladder is normal without stones, gallbladder wall thickening or pericholecystic fluid. Comm on bile duct measures 3.4 mm. No sonographic Valadez's sign. There is a right renal cyst measuring 1. 8 cm. IMPRESSION: 1: Normal limited abdominal ultrasound. Reviewed, dictated and finalized at location A. WIPER
== END ==
PROVIDERS: PCP Internal Medicine; Visit Provider Internal Medicine
DX: K21.9 Gastro-esophageal reflux disease without esophagitis (principal)
CPT/HCPCS: 76705

== ENCOUNTER 2023-10-11 00:40 | Day surgery (SDC) | payer BC, SELFPAY ==
[2023-09-27 10:27] VITALS: BMI 25.6
--- NOTE | 2023-10-09 09:55 | SUR.PREOP ---
Patient called regarding upcoming procedure. Reviewed preop instructions, appointment times, and procedure prep.
[2023-10-11 11:01] VITALS: BP 138/91; PULSE 89; RESP 18; TEMP 36.4; O2SAT 100; BMI 25.9
--- NOTE | 2023-10-11 11:14 | PM.HPGS ---
History of Present Illness History of Present Illness Consent: Risks, benefits, and alternatives have been discussed and questions answered. Patient agrees to proceed with procedure. Chief complaint: GERD Narrative: Rebecca Shin is a 53 year old female Referred for EGD. Patient complains of chronic GE reflux. She notices intermittent regurgitation. She has been treated with omeprazole 20mg p.o. daily with good results. She does only take this medication intermittently. She states when she takes it it helps. Patient denies any dysphagia bleeding or weight loss. She does notice follow-up breath. Dental exam was unremarkable. Her dentist suggested an EGD as well. Family history is noncontributory. Review of Systems Review of Systems: Review of systems noncontributory. [facility] Past Medical History Medical History Chronic GERD Constipation Gas bloat syndrome HTN (hypertension) Migraine PIERRE (obstructive sleep apnea) Social History Social History Smoking status: Never smoker Substance use: never Substance use type: does not use Living arrangements: with family Spiritual care concerns: No Meds Home Medications and Allergies Home Medications Medication Instructions Recorded Confirmed Type amlodipine 5 mg tablet 5 mg PO DAILY 09/26/21 10/11/23 History hydrocortisone 2.5 % topical cream 1 applic RECTAL DAILY PRN 06/10/23 10/11/23 Rx with perineal applicator hemorrhoids #30 grams omeprazole 20 mg capsule,delayed 20 mg PO BID 1 month #60 caps 09/02/23 10/11/23 Rx release Allergies Allergy/AdvReac Type Severity Reaction Status Date / Time prochlorperazine Allergy Loss of Verified 10/11/23 11:00 [From Compazine] Consciousness Vital Signs Vital Signs - 24 hr 10/11/23 11:01 Temperature 97.5 F L Pulse Rate 89 Respiratory Rate 18 Blood Pressure 138/91 H Pulse Oximetry 100 Oxygen Delivery Room Air Exam Narrative: Physical exam reveals patient to be alert. Vital signs stable. HEENT exam is unremarkable. Patient is anicteric. Lungs are clear to auscultation and percussion. Heart is without murmur or extra sounds. Abdomen bowel sounds present soft nontender with no organomegaly. Assessment and Plan Assessment and plan (1) Chronic GERD: Code(s): K21.9 - Gastro-esophageal reflux disease without esophagitis Status: Acute Assessment and Plan: Patient with chronic GE reflux. Plan for EGD is surveillance to exclude Bourgeois's esophagus. Because she has some bloating also using Gas-X or simethicone may be beneficial. If omeprazole is required long-term then she may benefit from also using Oscal calcium supplementation.
[2023-10-11] MEDS: LACTATED RINGERS 1,000 ML 150 ML IV CONT (11:16)
--- NOTE | 2023-10-11 11:37 | P.PNAN_ITS ---
Anes - Initial Pre Proc Eval Procedure: Operation Date: 10/11/23 11:30 Proposed Procedures p Esophagogastroduodenoscopy - Abdulkadir Can MD Date/Time: 10/11/23 11:37 Surgeon: Abdulkadir Can MD Pre Op Diagnosis: GERD Patient Data Age: 53 Gender: F Height: 1.57 m Weight: 64.4 kg Last Vital Signs Temp 97.5 F L 10/11/23 11:01 Pulse 89 10/11/23 11:01 Resp 18 10/11/23 11:01 BP 138/91 H 10/11/23 11:01 Pulse Ox 100 10/11/23 11:01 O2 Del Method Room Air 10/11/23 11:01 Allergies Allergy/AdvReac Type Severity Reaction Status Date / Time prochlorperazine Allergy Loss of Verified 10/11/23 11:00 [From Compazine] Consciousness Home Medications Medication Instructions Recorded Confirmed Type amlodipine 5 mg tablet 5 mg PO DAILY 09/26/21 10/11/23 History hydrocortisone 2.5 % topical cream 1 applic RECTAL DAILY PRN 06/10/23 10/11/23 Rx with perineal applicator hemorrhoids #30 grams omeprazole 20 mg capsule,delayed 20 mg PO BID 1 month #60 caps 09/02/23 10/11/23 Rx release Patient hx anesthesia problems: none Family hx anesthesia problems: none Results Review: All pre-operative results and documents have been reviewed as part of the pre- operative evaluation. [facility] Past Medical History Medical History Chronic GERD Constipation Gas bloat syndrome HTN (hypertension) Migraine PIERRE (obstructive sleep apnea) Social History Social History Smoking status: Never smoker Substance use: never Substance use type: does not use Living arrangements: with family Spiritual care concerns: No Anes - Eval Final PreProcedure Day of Procedure 10/11/23 11:37 Patient weight: normal Heart: regular rate and rhythm Lungs: clear to auscultation Airway: Mallampati scale class II Neurological: alert and oriented Last oral intake: >/= 8 hours ASA classification: II Emergent: no Anesthetic plan: proceed Anesthesia type and monitoring: general GIVS and standard monitoring Results Review: All pre-operative results and documents have been reviewed as part of the pre- operative evaluation. Informed Consent: The patient's anesthetic plan and its attendant risks and benefits were discussed with the patient/family/POA. Questions were solicited and answers provided to the satisfaction of the patient/family/POA.
[2023-10-11 11:55] VITALS: BP 123/82; PULSE 81; RESP 18; O2SAT 100
[2023-10-11 12:05] VITALS: BP 119/86; PULSE 74; RESP 17; O2SAT 100
[2023-10-11 12:15] VITALS: BP 124/88; PULSE 79; RESP 16; O2SAT 100
== END 2023-10-11 12:23 | disposition home or self-care (01) ==
PROVIDERS: PCP Internal Medicine; Visit Provider Internal Medicine Gastroenterology
PROC: 0DJ08ZZ Inspection of Upper Intestinal Tract, Via Natural or Artificial Opening Endoscopic (ICD-10-PCS; CPT 43235; principal; 2023-10-11 11:30)
DX: K21.9 Gastro-esophageal reflux disease without esophagitis (principal); I10 Essential (primary) hypertension; G47.33 Obstructive sleep apnea (adult) (pediatric)
CPT/HCPCS: 43239; 87081; J2001; J2704; J7120

== ENCOUNTER → 2023-12-17 12:30 | Outpatient (CLI) | payer BC, SELFPAY ==
--- NOTE | ~2023-12-17 | MM_ITS ---
EXAMINATION: MM screening [facility] BI w nanci HISTORY: Screening mammogram TECHNIQUE: Craniocaudal and mediolateral oblique 3-D tomosynthesis images were obtained and synthetic 2-D images were generated. CAD analysis was submitted and interpreted. COMPARISON: 09/17/2022, 11/11/2020, 09/29/2019 BREAST PARENCHYMAL COMPOSITION: The breasts are heterogeneously dense, which may obscure small masses . FINDINGS: RIGHT BREAST: No suspicious mass, calcification, or architectural distortion are identified to sugges t malignancy. There has been no suspicious interval change. LEFT BREAST: An asymmetry is present in the far posterior third of the outer breast 10 cm from the ni pple on the craniocaudal view. IMPRESSION: 1. Left breast asymmetry. 2. Additional mammographic views and possible breast ultrasound are recommended. BI-RADS Category 0: Incomplete: Needs additional imaging evaluation. Reviewed, dictated and finalized at location A. F SCIENTIST IMPRESSION: 1. Left breast asymmetry. 2. Additional mammographic views and possible breast ultrasound are recommended . BI-RADS Category 0: Incomplete: Needs additional imaging evaluation.
== END ==
PROVIDERS: PCP Internal Medicine; Visit Provider Internal Medicine
DX: Z12.31 Encounter for screening mammogram for malignant neoplasm of breast (principal); R92.8 Other abnormal and inconclusive findings on diagnostic imaging of breast
CPT/HCPCS: 77063; 77067

== ENCOUNTER → 2024-01-15 08:30 | Outpatient (CLI) | payer BC, SELFPAY ==
--- NOTE | ~2024-01-15 | MMUS_ITS ---
EXAMINATION: MM diagnostic [facility] LT w nanci, US breast LT limited HISTORY: Follow-up left breast asymmetry TECHNIQUE: Additional 3-D tomosynthesis images of the left breast were performed and synthetic 2-D im ages were generated. CAD analysis was submitted and interpreted. High resolution Limited left breast ultrasound was performed. COMPARISON: 02/01/2015 BREAST PARENCHYMAL COMPOSITION: Dense: The breasts are heterogeneously dense, which may obscure small masses FINDINGS: MAMMOGRAPHIC FINDINGS: There are no suspicious masses, calcifications or architectural distortion in the left breast to sugg est malignancy. ULTRASOUND: Limited left breast ultrasound: At 1:00, 3 cm from the nipple there is an oval hypoechoic 3 mm mass w ith low-level internal echoes, parallel orientation and no internal vascularity, likely a complicated cyst. IMPRESSION: 1. Probable benign complicated cyst at 1:00, 3 cm from the nipple. 2. Recommend 6 month follow-up Limited left breast ultrasound. BI-RADS category 3, probably benign findings. Reviewed, dictated and finalized at location A. ER WIRER IMPRESSION: 1. Probable benign complicated cyst at 1:00, 3 cm from the nipple. 2. Recommend 6 month follow-up Limited left breast ultrasound. BI-RADS category 3, probably benign findings.
== END ==
PROVIDERS: PCP Internal Medicine; Visit Provider Internal Medicine
DX: R92.8 Other abnormal and inconclusive findings on diagnostic imaging of breast (principal)
CPT/HCPCS: 76642; 77061; 77065; G0279

== ENCOUNTER 2024-07-17 08:53 | Outpatient (CLI) | payer BC, SELFPAY ==
--- NOTE | ~2024-07-17 | US_ITS ---
US breast LT limited INDICATION: Six-month follow-up left breast mass TECHNIQUE: Dedicated Limited left breast ultrasound COMPARISON: Ultrasound dated 01/15/2024 BREAST DENSITY: [ Dense: The breasts are heterogeneously dense, which may obscure small masses ] FINDINGS: The left breast is/are composed of normal heterogeneous echotexture without focal solid or cystic mass. IMPRESSION: 1: Normal left breast ultrasound. Routine yearly screening mammogram and regular clinical breast examination are recommended. BI-RADS CATEGORY 1 - NEGATIVE Reviewed, dictated and finalized at location B.
== END 2024-07-17 08:54 ==
LOC: MICIMG 08:54
PROVIDERS: PCP Internal Medicine; Visit Provider Internal Medicine
DX: R92.8 Other abnormal and inconclusive findings on diagnostic imaging of breast (principal)
CPT/HCPCS: 76642